=== PATIENT | female | born 1990 | race American Indian/Alaskan Native ===

== ENCOUNTER 2016-07-05 05:45 | Emergency (ER) | payer OTHER ==
[2016-07-05 05:45] VITALS: BMI 32.5
[2016-07-05 05:58] VITALS: TEMP 98.7
--- NOTE | 2016-07-05 06:20 | C.PDOC ---
History Of Present Illness 26 year old female presents to the ED with complaints of left hand swelling and pain after hitting hand against wall. Patient denies any trauma to any other region of the arm, loss of consciousness, or any other complaints at this time. Time Seen by Provider: 07/05/16 05:59 Chief Complaint (Nursing): Finger,Hand,&Wrist History Per: Patient History/Exam Limitations: no limitations Onset/Duration Of Symptoms: Hrs Current Symptoms Are (Timing): Still Present Quality: "Pain" Severity: Mild Pain Scale Rating Of: 4 Exacerbating Factor(s): Movement Recent travel outside of the [place]: No Past Medical History Reviewed: Historical Data, Nursing Documentation, Vital Signs Vital Signs: Last Vital Signs Temp 98.7 F 07/05/16 05:56 Pulse 100 H 07/05/16 05:56 Resp 16 07/05/16 05:56 BP 113/83 07/05/16 05:56 Pulse Ox 100 07/05/16 06:23 Family History: States: Unknown Family Hx - Social History Hx Alcohol Use: No Hx Substance Use: No Review Of Systems Constitutional: Negative for: Fever, Chills, Sweats Gastrointestinal: Negative for: Nausea, Vomiting, Abdominal Pain, Diarrhea Musculoskeletal: Positive for: Hand Pain (left hand swelling ) Skin: Positive for: Bruising (left thumb ). Negative for: Rash Neurological: Negative for: Headache, Dizziness Physical Exam - Physical Exam Appears: Non-toxic, No Acute Distress Skin: Warm, Dry Head: Atraumatic Oral Mucosa: Moist Neck: Supple Chest: Symmetrical, No Deformity Cardiovascular: Rhythm Regular Respiratory: No Rales, No Rhonchi, No Stridor, No Wheezing Gastrointestinal/Abdominal: Soft, No Tenderness, No Distention, No Guarding, No Rebound Extremity: Normal ROM, Tenderness (left hand ), Swelling (left hand with no pain or tenderness in left wrist ) Neurological/Psych: Oriented x3 ED Course And Treatment O2 Sat by Pulse Oximetry: 100 (room air) Disposition - Disposition Disposition Time: 07:09 Condition: STABLE - Clinical Impression Clinical Impression: Finger injury - Scribe Statement The provider has reviewed the documentation as recorded by the Scribe Halie Cummings All medical record entries made by the Floweribe were at my direction and personally dictated by me. I have reviewed the chart and agree that the record accurately reflects my personal performance of the history, physical exam, medical decision making, and the department course for this patient. I have also personally directed, reviewed, and agree with the discharge instructions and disposition. Physician Patient Turnover Patient Signed Over To: Cecile Almanza Handoff Comments: xray pending
--- NOTE | 2016-07-05 07:42 | RAD ---
Left thumb three views History: Injury. Comparison: None available. Findings: No evidence for acute displaced fracture or dislocation. Soft tissue swelling noted at the level of the 1st digit. Productive change at the radial cortex of the distal radius. Impression: Negative acute. If pain persists, consider MRI.
[2016-07-05 08:14] VITALS: BP 115/67; PULSE 90; RESP 18; O2SAT 98
== END 2016-07-05 08:06 | disposition home or self-care (01) ==
LOC: C.ER 05:45
DX: S63.602A Unspecified sprain of left thumb, initial encounter (principal); W22.01XA Walked into wall, initial encounter; Y92.9 Unspecified place or not applicable

== ENCOUNTER 2016-07-07 12:15 | Emergency (ER) | payer OTHER ==
[2016-07-07 12:15] VITALS: BMI 32.5
[2016-07-07 12:24] VITALS: BP 135/101; PULSE 81; RESP 18; TEMP 97.9; O2SAT 100
--- NOTE | 2016-07-07 12:44 | C.PDOC ---
History Of Present Illness 26-year-old female, presents to the emergency department for "follow-up" for thumb injury. Patient states she injured her thumb a few days ago, and was seen in ED, patients x-ray was negative for fracture. her thumb was placed in splint and she was discharged for f/u outpatient w/ ortho. States she went to clinic and there were no appointments available until next month, resulting in her coming to the ED for evaluation. Time Seen by Provider: 07/07/16 12:39 Chief Complaint (Nursing): Upper Extremity Problem/Injury History Per: Patient Past Medical History Reviewed: Historical Data, Nursing Documentation, Vital Signs Vital Signs: Last Vital Signs Temp 97.9 F 07/07/16 12:21 Pulse 81 07/07/16 12:21 Resp 18 07/07/16 12:21 BP 135/101 H 07/07/16 12:21 Pulse Ox 100 07/07/16 13:05 Family History: States: Unknown Family Hx - Social History Hx Alcohol Use: No Hx Substance Use: No Review Of Systems Except As Marked, All Systems Reviewed And Found Negative. Constitutional: Negative for: Fever Gastrointestinal: Negative for: Vomiting Skin: Negative for: Rash Neurological: Negative for: Weakness, Numbness Physical Exam - Physical Exam Appears: Non-toxic, No Acute Distress Neck: Normal ROM Extremity: Normal ROM, Capillary Refill (<2 seconds), No Deformity, Swelling Neurological/Psych: Oriented x3 ED Course And Treatment O2 Sat by Pulse Oximetry: 100 Medical Decision Making Medical Decision Making: pt in er for "followup". pt advised xr neg 2 days ago. no c/o of pain. advised to continue supportive management. Disposition - Disposition Referrals: [facility] [Outside] [employer] [Outside] [facility] [Outside] [facility] [Outside] Comfort Summers MD [Staff Provider] - Gibson Dueñas MD [Staff Provider] - Disposition: HOME/ ROUTINE Disposition Time: 12:42 Condition: STABLE Additional Instructions: please follow up with your doctor. return to er with worsening symptoms or concerns. Instructions: Hand Sprain (ED) - Clinical Impression Clinical Impression: Hand injury - Scribe Statement The provider has reviewed the documentation as recorded by the Scribernestina Summers All medical record entries made by the Scribe were at my direction and personally dictated by me. I have reviewed the chart and agree that the record accurately reflects my personal performance of the history, physical exam, medical decision making, and the department course for this patient. I have also personally directed, reviewed, and agree with the discharge instructions and disposition.
== END 2016-07-07 13:07 | disposition home or self-care (01) ==
LOC: C.ER 12:15
DX: S69.90XD Unspecified injury of unspecified wrist, hand and finger(s), subsequent encounter (principal); X58.XXXD Exposure to other specified factors, subsequent encounter

== ENCOUNTER 2016-08-02 07:18 | Emergency (ER) | payer SELFPAY ==
[2016-08-02 07:19] VITALS: BMI 32.5
[2016-08-02 07:22] VITALS: O2SAT 99
[2016-08-02] MEDS ORDERED: Sodium Chloride 0.9% 1,000 ML IV ONE (07:35)
[2016-08-02 08:00] LABS: BASO % 0.6 % (0.0-2.0); EOS # 0.1 K/uL (0.0-0.7); EOS % 1.3 % (0.0-4.0); HEMATOCRIT 40.3 % (34.0-47.0); LYMPH # 1.9 K/uL (1.0-4.3); LYMPH % 24.4 % (20.0-40.0); MEAN CORPUSCULAR HEMOGLOBIN 28.7 pg (27.0-31.0); MEAN PLATELET VOLUME 9.3 fL (7.2-11.7); MONO # 0.5 K/uL (0.0-0.8); MONO % 6.5 % (0.0-10.0); NRBC % 0.1 % (0.0-2.0); RED CELL DISTRIBUTION WIDTH 12.6 % (11.5-14.5); WHITE BLOOD COUNT 7.9 K/uL (4.8-10.8)
[2016-08-02 08:10] LABS: CHLORIDE 109 mmol/L (98-107); POTASSIUM 3.8 mmol/L (3.6-5.2); SODIUM 142 mmol/L (132-148)
[2016-08-02 08:12] LABS: BILIRUBIN,TOTAL 0.7 mg/dL (0.2-1.3); GFR AFRICAN-AMERICAN > 60
[2016-08-02 08:13] LABS: ALB/GLOB RATIO 1.2 (1.0-2.1); ALKALINE PHOSPHATASE 62 U/L (38-126); ALT/SGPT 16 U/L (9-52); AST/SGOT 17 U/L (14-36); BLOOD UREA NITROGEN 11 mg/dL (7-17); CARBON DIOXIDE 22 mmol/L (22-30); GLUCOSE,RANDOM 93 mg/dL (65-105); TOTAL PROTEIN 7.7 g/dL (6.3-8.3)
[2016-08-02 08:14] LABS: CALCIUM 9.1 mg/dl (8.6-10.4)
[2016-08-02 08:16] LABS: RBC URINE 2 /hpf (0-3); URINE BILIRUBIN NEGATIVE (NEGATIVE); URINE BLOOD NEGATIVE (NEGATIVE); URINE COLOR Yellow (YELLOW); URINE GLUCOSE (UA) NORMAL (Normal); URINE KETONE NEGATIVE (NEGATIVE); URINE LEUKOCYTE ESTERASE TRACE Leu/uL (Negative); URINE PROTEIN NEGATIVE (NEGATIVE); URINE UROBILINOGEN NORMAL mg/dL (0.2-1.0); WBC URINE 3 /hpf (0-5)
--- NOTE | 2016-08-02 08:17 | C.PDOC ---
History Of Present Illness Patient is a 26 y/o female that presents to the ED for evaluation of headache since yesterday. Patient states her symptoms normally improve after taking Tylenol or Motrin, but didnt help yesterday. Didnt take any medication today. Patient also admits to nausea, vomiting, and photophobia. Otherwise, denies any dizziness, lightheadedness, blurred vision, extremity weakness/numbness, fever, chills, or any other associated symptoms at this time. Time Seen by Provider: 08/02/16 07:31 Chief Complaint (Nursing): Headache History Per: Patient History/Exam Limitations: no limitations Onset/Duration Of Symptoms: Days (1) Current Symptoms Are (Timing): Still Present Quality: Aching Associated Symptoms: Photophobia, Nausea, Vomiting. denies: Blurred Vision, Extremity Weakness Recent travel outside of the [place]: No Additional History Per: Patient Past Medical History Reviewed: Historical Data, Nursing Documentation, Vital Signs Vital Signs: Last Vital Signs Temp 98.4 F 08/02/16 09:35 Pulse 81 08/02/16 09:35 Resp 17 08/02/16 09:35 BP 126/78 08/02/16 09:35 Pulse Ox 99 08/02/16 09:35 - Medical History PMH: Migraine Family History: States: Unknown Family Hx - Social History Hx Alcohol Use: Yes Hx Substance Use: No Review Of Systems Except As Marked, All Systems Reviewed And Found Negative. Constitutional: Negative for: Fever, Chills Eyes: Positive for: Other (photophobia). Negative for: Vision Change Cardiovascular: Negative for: Chest Pain, Palpitations, Light Headedness Gastrointestinal: Positive for: Nausea, Vomiting. Negative for: Abdominal Pain , Diarrhea Musculoskeletal: Negative for: Neck Pain Neurological: Positive for: Headache. Negative for: Weakness, Numbness, Dizziness Physical Exam - Physical Exam Appears: Non-toxic, No Acute Distress Skin: Normal Color, Warm, Dry, No Rash Head: Atraumatic, Normacephalic Eye(s): bilateral: Normal Inspection, PERRL, EOMI Ear(s): Bilateral: Normal Nose: Normal Oral Mucosa: Moist Neck: Normal ROM, Supple Chest: Symmetrical, No Tenderness Cardiovascular: Rhythm Regular, No Murmur Respiratory: Normal Breath Sounds, No Rales, No Rhonchi, No Wheezing Gastrointestinal/Abdominal: Soft, No Tenderness Extremity: Normal ROM Neurological/Psych: Oriented x3, Normal Speech, Normal Cognition, Normal Cranial Nerves (2-12), Normal Motor, Normal Sensation, Other (no focal deficits) ED Course And Treatment - Laboratory Results Result Diagrams: 08/02/16 07:56 08/02/16 07:56 O2 Sat by Pulse Oximetry: 99 (on RA) Pulse Ox Interpretation: Normal Progress Note: Labs ordered and reviewed. Patient was given IV fluids, Toradol IVP, and Reglan IVP. On reassessment, patient is resting comfortably, and reports improvement of headache. No neurologic deficit, photophobia, rash, fever , or nuchal rigidity. Offered additonal medication or imaging, pt refused noting she is hungry. PO challegen ordered. Pt tolerated PO challenge and feels comfortable with discharge. Patient was instructed to follow up with physician/ clinic in 1-2 days. Disposition - Disposition Disposition: HOME/ ROUTINE Disposition Time: 08:50 Condition: STABLE Additional Instructions: Follow up with your primary medical doctor or clinic in 2-5 days for further evaluation. Take medications as prescribed. Return to the emergency department at any time if symptoms persist or worsen. 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 - Scribe Statement The provider has reviewed the documentation as recorded by the Yessica Castro All medical record entries made by the Yessica were at my direction and personally dictated by me. I have reviewed the chart and agree that the record accurately reflects my personal performance of the history, physical exam, medical decision making, and the department course for this patient. I have also personally directed, reviewed, and agree with the discharge instructions and disposition.
[2016-08-02 09:36] VITALS: BP 126/78; PULSE 81; RESP 17; TEMP 98.4
== END 2016-08-02 09:35 | disposition home or self-care (01) ==
LOC: C.ER 07:18
DX: R51 Headache (principal)
CPT/HCPCS: 80053; 81001; 84703; 85025; 96361; 96374; 96375; 99285; J1885; J2765; J7040

== ENCOUNTER 2016-09-19 07:00 | Emergency (ER) | payer OTHER ==
[2016-09-19 07:00] VITALS: BMI 32.5
[2016-09-19 07:10] VITALS: RESP 18
[2016-09-19 08:16] LABS: HCG,QUALITATIVE URINE NEGATIVE (NEGATIVE)
[2016-09-19 08:20] LABS: SQUAMOUS EPITHIAL 3 /hpf (0-5); URINE BACTERIA RARE (<OCC); URINE BILIRUBIN NEGATIVE (NEGATIVE); URINE BLOOD 2+ (NEGATIVE); URINE CLARITY Clear (Clear); URINE COLOR Yellow (YELLOW); URINE GLUCOSE (UA) NORMAL (Normal); URINE LEUKOCYTE ESTERASE NEG Leu/uL (Negative); URINE NITRATE NEGATIVE (NEGATIVE); URINE PROTEIN NEGATIVE (NEGATIVE); URINE UROBILINOGEN NORMAL mg/dL (0.2-1.0)
[2016-09-19] MEDS ORDERED: Sodium Chloride 0.9% 1,000 ML IV STA (08:21)
[2016-09-19] MEDS ORDERED: Sodium Chloride 0.9% 1,000 ML ONE (08:36)
[2016-09-19 08:47] LABS: BASO % 0.6 % (0.0-2.0); EOS # 0.1 K/uL (0.0-0.7); EOS % 2.4 % (0.0-4.0); HEMOGLOBIN 13.5 g/dL (11.0-16.0); LYMPH # 1.8 K/uL (1.0-4.3); LYMPH % 33.7 % (20.0-40.0); MEAN CELL VOLUME 87.2 fL (81.0-99.0); MEAN CORPUSCULAR HEMOGLOBIN 28.6 pg (27.0-31.0); MEAN CORPUSCULAR HGB CONC 32.7 g/dL (33.0-37.0); MONO # 0.4 K/uL (0.0-0.8); MONO % 7.2 % (0.0-10.0); NEUT # 3.1 K/uL (1.8-7.0); NEUT % 56.1 % (50.0-75.0); RBC 4.73 Mil/uL (3.80-5.20); RED CELL DISTRIBUTION WIDTH 13.1 % (11.5-14.5); WHITE BLOOD COUNT 5.5 K/uL (4.8-10.8)
[2016-09-19 09:01] LABS: GFR AFRICAN-AMERICAN > 60; GFR NON-AFRICAN AMERICAN > 60
[2016-09-19 09:02] LABS: BLOOD UREA NITROGEN 16 mg/dL (7-17); CALCIUM 9.4 mg/dl (8.6-10.4)
[2016-09-19 09:50] VITALS: BP 112/76; PULSE 71; TEMP 98.5; O2SAT 100
--- NOTE | 2016-09-19 10:19 | C.PDOC ---
History Of Present Illness 26 yr old female presents to the ER with complaints of vaginal bleeding for the past 1 week. Patient states she is on the Depo shot, got it in April and July but has not had any bleeding till now. Reports seeing clots. Patient states was recently treated for candidal vaginitis. Patient denies fever, nausea, vomiting , abdominal pain, dysuria or back pain. Time Seen by Provider: 09/19/16 07:30 Chief Complaint (Nursing): Female Genitourinary History Per: Patient History/Exam Limitations: no limitations Onset/Duration Of Symptoms: Days (1 week) Current Symptoms Are (Timing): Still Present Severity: None Past Medical History Reviewed: Historical Data, Nursing Documentation, Vital Signs Vital Signs: Last Vital Signs Temp 98.5 F 09/19/16 09:49 Pulse 71 09/19/16 09:49 Resp 18 09/19/16 09:49 BP 112/76 09/19/16 09:49 Pulse Ox 100 09/19/16 10:39 - Medical History PMH: Migraine Family History: States: No Known Family Hx - Social History Hx Alcohol Use: Yes Hx Substance Use: No - Immunization History Hx Tetanus Toxoid Vaccination: No Hx Influenza Vaccination: No Hx Pneumococcal Vaccination: No Review Of Systems Except As Marked, All Systems Reviewed And Found Negative. Constitutional: Negative for: Fever Gastrointestinal: Negative for: Nausea, Vomiting, Abdominal Pain Genitourinary: Positive for: Vaginal Bleeding. Negative for: Dysuria Musculoskeletal: Negative for: Back Pain Physical Exam - Physical Exam Appears: Non-toxic, No Acute Distress Skin: Warm, Dry, No Rash Head: Atraumatic, Normacephalic Oral Mucosa: Moist Chest: Symmetrical, No Tenderness Cardiovascular: Rhythm Regular, No Murmur Respiratory: Normal Breath Sounds, No Rales, No Rhonchi, No Stridor, No Wheezing Gastrointestinal/Abdominal: Normal Exam, Soft, No Tenderness, No Guarding, No Rebound Pelvic: Vaginal Discharge (Minimal bloody discharge), No Cervical Motion Tenderness, No Cervix Open Extremity: Normal ROM, No Swelling Neurological/Psych: Oriented x3, Normal Speech, Normal Motor ED Course And Treatment - Laboratory Results Result Diagrams: 09/19/16 08:43 09/19/16 08:43 O2 Sat by Pulse Oximetry: 100 (RA) Pulse Ox Interpretation: Normal Progress Note: Blood works all resulted without acute abnormalities. On re-exam patient is stable, ambulatory and stable to be dischagre home to follow up with OBGYN in 1-2 days. Medical Decision Making Medical Decision Making: PLAN: * CBC * BMP * HCG * Urinalysis * Sodium Chloride IV Disposition - Disposition Disposition: HOME/ ROUTINE Disposition Time: 10:18 Condition: STABLE Additional Instructions: Follow up with your OBGYN within 2-3 days. Return to ED if feel worse. Instructions: Dysfunctional Uterine Bleeding (ED) Forms: Work/School/Gym Excuse, [employer] (Macedonian) - Clinical Impression Clinical Impression: Vaginal bleeding - PA / VICE CHAIRMAN / Resident Statement MD/DO has reviewed & agrees with the documentation as recorded. - Scribe Statement The provider has reviewed the documentation as recorded by the Scribe Ena Gonzáles All medical record entries made by the Scribe were at my direction and personally dictated by me. I have reviewed the chart and agree that the record accurately reflects my personal performance of the history, physical exam, medical decision making, and the department course for this patient. I have also personally directed, reviewed, and agree with the discharge instructions and disposition.
== END 2016-09-19 10:25 | disposition home or self-care (01) ==
LOC: C.ER 07:00
DX: N93.9 Abnormal uterine and vaginal bleeding, unspecified (principal)
CPT/HCPCS: 80048; 81001; 84703; 85025; 96360; 99285; J7040

== ENCOUNTER 2016-11-30 02:14 | Emergency (ER) | payer OTHER ==
[2016-11-30 02:14] VITALS: BMI 32.5
[2016-11-30] MEDS ORDERED: DiphenhydrAMINE 50 mg/ml Inj IM STA (02:40)
[2016-11-30 02:43] VITALS: TEMP 98.6
[2016-11-30] MEDS ORDERED: Dexamethasone 4 mg/1 ml ONE (02:46)
--- NOTE | 2016-11-30 03:28 | C.PDOC ---
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 Patient denies exposure to known allergens. No SOB, chest tightness, or introral swelling. Time Seen by Provider: 11/30/16 02:39 Chief Complaint (Nursing): Allergic Reaction History Per: Patient History/Exam Limitations: no limitations Onset/Duration Of Symptoms: Hrs Current Symptoms Are (Timing): Still Present Possible Cause: Unknown Severity: Mild Recent travel outside of the [place]: No Additional History Per: Patient Past Medical History Reviewed: Historical Data, Nursing Documentation, Vital Signs Vital Signs: Last Vital Signs Temp 98.6 F 11/30/16 02:28 Pulse 111 H 11/30/16 02:28 Resp 20 11/30/16 02:28 BP 132/96 H 11/30/16 02:28 Pulse Ox 100 11/30/16 04:44 - Medical History PMH: Migraine Family History: States: Unknown Family Hx - Social History Hx Alcohol Use: Yes Hx Substance Use: No - Immunization History Hx Tetanus Toxoid Vaccination: No Hx Influenza Vaccination: No Hx Pneumococcal Vaccination: No Review Of Systems ENT: Negative for: Mouth Swelling, Throat Swelling Cardiovascular: Negative for: Chest Pain (Chest tightness) Respiratory: Negative for: Shortness of Breath Skin: Positive for: Rash (Generilized pruritic rash) Physical Exam - Physical Exam Appears: Non-toxic, No Acute Distress Skin: Warm, Dry, Rash (Diffuse maculopapular rash) Head: Atraumatic, Normacephalic Eye(s): bilateral: Normal Inspection, PERRL Oral Mucosa: Moist, No Drooling Tongue: Normal Appearing, No Swelling Lips: No Swelling Throat: Normal, No Erythema, No Drooling Neck: Supple Cardiovascular: Rhythm Regular Respiratory: Normal Breath Sounds, No Accessory Muscle Use, No Stridor, No Wheezing Neurological/Psych: Oriented x3 Gait: Steady ED Course And Treatment O2 Sat by Pulse Oximetry: 100 (RA) Pulse Ox Interpretation: Normal Progress Note: Plans: Decadron and benadryl. Patient is in no acute distress at this time. Patient is resting comfortably, tolerating PO, has no shortness of breath, has no intra-oral swelling, or stridor. Patient was advised to avoid any potential allergens, and to follow up with physician in 1-2 days. Reevaluation Time: 05:25 Reassessment Condition: Improved Disposition Counseled Patient/Family Regarding: Diagnosis, Need For Followup, Rx Given - Disposition Referrals: [facility] [Outside] Disposition: HOME/ ROUTINE Disposition Time: 04:41 Condition: STABLE Additional Instructions: Take meds as directed Follow up with PMD Return to ER if difficulty swelling, SOB or worse Prescriptions: Cetirizine HCl [Zyrtec] 10 mg PO DAILY #20 capsule DiphenhydrAMINE [Benadryl] 50 mg PO Q6H #20 cap Epinephrine [Epipen] 0.3 mg IJ ONCE #2 auto.injct predniSONE [Prednisone] 40 mg PO DAILY #8 tab Instructions: Urticaria (ED) Forms: [employer] (Georgian) - Clinical Impression Clinical Impression: Allergic urticaria - Scribe Statement The provider has reviewed the documentation as recorded by the lFoweribernestina priest All medical record entries made by the Floweribernestina were at my direction and personally dictated by me. I have reviewed the chart and agree that the record accurately reflects my personal performance of the history, physical exam, medical decision making, and the department course for this patient. I have also personally directed, reviewed, and agree with the discharge instructions and disposition.
[2016-11-30 04:56] VITALS: BP 112/66; PULSE 86; RESP 18; O2SAT 99
== END 2016-11-30 05:06 | disposition home or self-care (01) ==
LOC: C.ER 02:14
DX: L50.0 Allergic urticaria (principal)
CPT/HCPCS: 96372; 99284; J1100; J1200

== ENCOUNTER 2018-04-22 | Emergency (ER) | payer SELFPAY, MEDICAID | END 2018-04-22 01:19 | disposition home or self-care (01) | LOC: C.ER ==